=== PATIENT | female | born 1985 | race Hispanic/Latino ===

== ENCOUNTER 2017-10-20 13:06 | Emergency (ER) | payer OTHER ==
[2017-10-20 13:44] LABS: EOSINOPHILS % (AUTO) 1.7 % (0.0-8.0); HEMATOCRIT 39.1 % (36-48); LYMPHOCYTES % (AUTO) 35.3 % (21.0-51.0); MEAN CORPUSCULAR HEMOGLOBIN 30.1 pg (27.0-33.0); MEAN CORPUSCULAR HGB CONC 34.1 g/dL (32.0-36.0); MEAN CORPUSCULAR VOLUME 88.4 fL (79-99); MONOCYTES % (AUTO) 9.3 % (3.0-13.0); NEUTROPHILS % (AUTO) 52.7 % (40.0-77.0); PLATELET COUNT (AUTO) 242 K/uL (130-400); RED BLOOD CELL COUNT(AUTO) 4.43 MIL/uL (4.00-5.50); RED CELL DISTRIBUTION WIDTH 12.5 % (11.0-15.5); WHITE BLOOD COUNT (AUTO) 6.6 K/uL (4.8-10.8)
[2017-10-20 13:53] LABS: CREATININE 0.7 mg/dL (0.5-1.5); POTASSIUM 3.9 mmol/L (3.5-5.1)
[2017-10-20 13:57] LABS: ALBUMIN 4.1 g/dL (3.5-5.0); BILIRUBIN,TOTAL 0.3 mg/dL (0.2-1.0); TOTAL PROTEIN, SERUM 8.2 g/dL (6.0-8.3)
[2017-10-20] MEDS ORDERED: KETOROLAC TROMETHAMINE 30MG/ML ONE (14:35)
[2017-10-20 14:51] LABS: APPEARANCE,URINE Cloudy (CLEAR); BILIRUBIN,URINE Negative (NEGATIVE); COLOR,URINE Yellow (YELLOW); GLUCOSE, URINE (UA) Negative (NEGATIVE); KETONES,URINE Negative (NEGATIVE); LEUKOCYTE ESTERASE ,URINE Small (NEGATIVE); NITRATE,URINE Negative (NEGATIVE); OCCULT BLOOD,URINE Negative (NEGATIVE); PH,URINE 5.5 (5.0-8.0); PROTEIN,URINE Negative (NEGATIVE); UROBILINOGEN,URINE 0.2 mg/dL (0.2-1.0)
[2017-10-20 15:09] LABS: RBC,URINE None Seen /HPF (0-1); SQUAMOUS EPITHELIAL CELL,UR 30-50 /LPF (0-2)
[2017-10-20 15:10] LABS: BACTERIA,URINE Few /HPF (None Seen); WBC,URINE 0-1 /HPF (0-1)
[2017-10-20] MEDS ORDERED: DOCUSATE SODIUM 100 MG CAP PO ONE (15:22)
[2017-10-20] MEDS ORDERED: CEPHALEXIN 500 MG CAPSULE ONE (15:22)
== END 2017-10-20 15:56 | disposition home or self-care (01) ==
LOC: EDH 13:06
DX: N39.0 Urinary tract infection, site not specified (principal); K59.00 Constipation, unspecified; R10.84 Generalized abdominal pain
CPT/HCPCS: 36415; 74176; 80053; 81001; 82150; 83690; 85025; 87088; 96374; 99285; J1885

== ENCOUNTER 2018-03-15 22:07 | Emergency (ER) | payer OTHER ==
[2018-03-15 22:22] LABS: APPEARANCE,URINE Clear (CLEAR); BILIRUBIN,URINE Negative (NEGATIVE); COLOR,URINE Yellow (YELLOW); GLUCOSE, URINE (UA) 500 mg/dL (NEGATIVE); KETONES,URINE 15 mg/dL (NEGATIVE); LEUKOCYTE ESTERASE ,URINE Negative (NEGATIVE); NITRATE,URINE Negative (NEGATIVE); OCCULT BLOOD,URINE Negative (NEGATIVE); PH,URINE 5.5 (5.0-8.0); PROTEIN,URINE Negative (NEGATIVE)
[2018-03-15 22:53] LABS: BACTERIA,URINE Few /HPF (None Seen); RBC,URINE None Seen /HPF (0-1); WBC,URINE None Seen /HPF (0-1)
[2018-03-15] MEDS ORDERED: DEXAMETHASONE SOD PHOSPHATE 10MG/ML 1ML VIAL ONE (23:32)
[2018-03-15] MEDS ORDERED: KETOROLAC TROMETHAMINE 30MG/ML ONE (23:33)
== END 2018-03-16 00:21 | disposition home or self-care (01) ==
LOC: EDH 22:07
DX: J02.0 Streptococcal pharyngitis (principal); M54.5 Low back pain; Z79.899 Other long term (current) drug therapy; Z90.710 Acquired absence of both cervix and uterus
CPT/HCPCS: 72100; 81001; 96372 ×2; 99285; J1100; J1885

== ENCOUNTER 2019-07-27 19:10 | Emergency (ER) | payer MEDICAID, OTHER ==
[2019-07-27] MEDS ORDERED: LIDOCAINE 5% TOPICAL PATCH TP ONE (19:29)
[2019-07-27] MEDS ORDERED: DIAZEPAM 5 MG TABLET ONE (19:30)
[2019-07-27] MEDS ORDERED: KETOROLAC TROMETHAMINE 60 MG/2 ML VIAL ONE (19:30)
== END 2019-07-27 21:31 | disposition home or self-care (01) ==
LOC: EDH 19:10
DX: M54.16 Radiculopathy, lumbar region (principal); Z90.710 Acquired absence of both cervix and uterus; Z98.51 Tubal ligation status
CPT/HCPCS: 96372; 99283; J1885

== ENCOUNTER 2019-12-17 15:41 | Emergency (ER) | payer MEDICAID ==
[2019-12-17 16:32] LABS: BASOPHILS % (AUTO) 0.4 % (0.0-5.0); EOSINOPHILS % (AUTO) 1.5 % (0.0-8.0); HEMATOCRIT 42.7 % (36-48); LYMPHOCYTES % (AUTO) 30.5 % (21.0-51.0); MEAN CORPUSCULAR HEMOGLOBIN 29.6 pg (27.0-33.0); MEAN CORPUSCULAR HGB CONC 33.3 g/dL (32.0-36.0); MONOCYTES % (AUTO) 5.6 % (3.0-13.0); NEUTROPHILS % (AUTO) 61.7 % (40.0-77.0); PLATELET COUNT (AUTO) 318 K/uL (130-400); RED CELL DISTRIBUTION WIDTH 12.4 % (11.0-15.5); WHITE BLOOD COUNT (AUTO) 10.6 K/uL (4.8-10.8)
[2019-12-17 16:39] LABS: CREATININE 0.8 mg/dL (0.5-1.5); POTASSIUM 3.5 mmol/L (3.5-5.1)
[2019-12-17 16:45] LABS: ALBUMIN 4.3 g/dL (3.5-5.0); BILIRUBIN,TOTAL 0.3 mg/dL (0.2-1.0); TOTAL PROTEIN, SERUM 8.8 g/dL (6.0-8.3)
[2019-12-17 16:52] LABS: BILIRUBIN,URINE Negative (NEGATIVE); COLOR,URINE Yellow (YELLOW); GLUCOSE, URINE (UA) Negative (NEGATIVE); KETONES,URINE 15 mg/dL (NEGATIVE); LEUKOCYTE ESTERASE ,URINE Negative (NEGATIVE); NITRATE,URINE Negative (NEGATIVE); OCCULT BLOOD,URINE Negative (NEGATIVE); PH,URINE 7.5 (5.0-8.0); PROTEIN,URINE Trace mg/dL (NEGATIVE)
[2019-12-17 16:55] LABS: AMPHET/METH SCREEN,URINE NEGATIVE (NEGATIVE); BARBITURATE SCREEN, URINE NEGATIVE (NEGATIVE); BENZODIAZEPINES SCREEN,URINE NEGATIVE (NEGATIVE); CANNABINOID SCREEN,URINE NEGATIVE (NEGATIVE); COCAINE SCREEN,URINE NEGATIVE (NEGATIVE); OPIATE SCREEN,URINE NEGATIVE (NEGATIVE); PHENCYCLIDINE SCREEN,URINE NEGATIVE (NEGATIVE)
[2019-12-17 17:00] LABS: APPEARANCE,URINE SLIGHTLY CLOUDY (CLEAR)
[2019-12-17 17:21] LABS: THYROID STIMULATING HORMONE 1.2 uIU/mL (0.36-3.74)
[2019-12-17 17:35] LABS: BACTERIA,URINE Few /HPF (None Seen); RBC,URINE 0-1 /HPF (0-1); WBC,URINE 0-1 /HPF (0-1)
[2019-12-17 17:36] LABS: SQUAMOUS EPITHELIAL CELL,UR Moderate /HPF (0-2)
== END 2019-12-17 17:39 | disposition home or self-care (01) ==
LOC: EDH 15:41
DX: F41.1 Generalized anxiety disorder (principal); Z72.0 Tobacco use; Z90.49 Acquired absence of other specified parts of digestive tract; Z90.710 Acquired absence of both cervix and uterus
CPT/HCPCS: 36415; 80053; 80305; 81001; 82550; 83735; 84443; 84484; 85025; 93005

== ENCOUNTER 2021-03-15 13:21 | Emergency (ER) | payer BC, MEDICAID ==
[2021-03-15] MEDS ORDERED: MAG HYDROX/AL HYDROX/SIMETH ES 30 ML SUSP UDCUP ONE (14:43)
[2021-03-15] MEDS ORDERED: LIDOCAINE HCL 2% VISCOUS 15 ML UDCUP ONE (14:43)
== END 2021-03-15 14:57 | disposition home or self-care (01) ==
LOC: EDH 13:21
DX: B00.2 Herpesviral gingivostomatitis and pharyngotonsillitis (principal); Z90.710 Acquired absence of both cervix and uterus; Z72.0 Tobacco use
CPT/HCPCS: 99281

== ENCOUNTER 2024-03-17 10:53 | Emergency (ER) | payer BC, MEDICAID, OTHER ==
[~2024-03-17] VITALS: Ht 160 cm; Wt 54.4 kg
[2024-03-17] MEDS: KETOROLAC 60 MG VIAL (30MG/ML) IM ONE (13:11)
[2024-03-17] MEDS: ORPHENADRINE CITRATE 30 MG/ML ML IM ONE (13:11)
[2024-03-17 14:05] LABS: BASOPHILS # (AUTO) 0.05 K/uL (0.00-0.20); BASOPHILS % (AUTO) 0.4 % (0.0-5.0); EOSINOPHILS # (AUTO) 0.19 K/uL (0.00-0.70); EOSINOPHILS % (AUTO) 1.7 % (0.0-8.0); HEMATOCRIT 42.2 % (36-48); IMMATURE GRANULOCYTE ABSOLUTE 0.03 K/uL (0-1); LYMPHOCYTES # (AUTO) 3.5 K/uL (1.0-4.8); LYMPHOCYTES % (AUTO) 30.7 % (21.0-51.0); MEAN CORPUSCULAR HEMOGLOBIN 30.2 pg (27.0-33.0); MEAN CORPUSCULAR HGB CONC 34.1 g/dL (32.0-36.0); MEAN CORPUSCULAR VOLUME 88.5 fL (79-99); MONOCYTES # (AUTO) 0.7 K/uL (0.1-1.0); MONOCYTES % (AUTO) 6.4 % (3.0-13.0); NEUTROPHILS # (AUTO) 6.9 K/uL (1.8-7.7); NEUTROPHILS % (AUTO) 60.5 % (40.0-77.0); PLATELET COUNT (AUTO) 363 K/uL (130-400); RED BLOOD CELL COUNT(AUTO) 4.77 MIL/uL (4.00-5.50); WHITE BLOOD COUNT (AUTO) 11.3 K/uL (4.8-10.8)
[2024-03-17 14:14] LABS: POTASSIUM 3.8 mmol/L (3.5-5.1)
[2024-03-17 14:15] LABS: CREATININE 0.8 mg/dL (0.5-1.0)
[2024-03-17] MEDS: TRAMADOL HCL 50 MG TABLET PO ONE (15:08)
[2024-03-17] MEDS: TRAMADOL HCL 50 MG TABLET ONE (15:08)
[2024-03-17] MEDS ORDERED: NAPR375T6 PO (16:28)
[2024-03-17 16:39] VITALS: BP 123/78; PULSE 78; RESP 18; O2SAT 98
== END 2024-03-17 16:42 | disposition home or self-care (01) ==
LOC: EDH 10:53
DX: S46.812A Strain of other muscles, fascia and tendons at shoulder and upper arm level, left arm, initial encounter (principal); Z88.1 Allergy status to other antibiotic agents; Z90.710 Acquired absence of both cervix and uterus; X58.XXXA Exposure to other specified factors, initial encounter; Y93.89 Activity, other specified; Y92.89 Other specified places as the place of occurrence of the external cause; Y99.8 Other external cause status
CPT/HCPCS: 99285; 71250; 71046; 84484; 80048; 85025; 85378; 81025; 36415; 96372 ×2; 93005; J1885; J2360

== ENCOUNTER 2024-08-05 11:02 | Emergency (ER) | payer SELFPAY ==
[~2024-08-05] VITALS: Ht 162.6 cm; Wt 52.2 kg
[~2024-08-05 11:02] MED LIST: NAPR-1505 PO
[2024-08-05 11:54] LABS: BASOPHILS # (AUTO) 0.04 K/uL (0.00-0.20); BASOPHILS % (AUTO) 0.6 % (0.0-5.0); EOSINOPHILS # (AUTO) 0.32 K/uL (0.00-0.70); EOSINOPHILS % (AUTO) 4.8 % (0.0-8.0); HEMATOCRIT 41.6 % (36-48); IMMATURE GRANULOCYTE ABSOLUTE 0.02 K/uL (0-1); LYMPHOCYTES # (AUTO) 2.3 K/uL (1.0-4.8); LYMPHOCYTES % (AUTO) 34.5 % (21.0-51.0); MEAN CORPUSCULAR HEMOGLOBIN 29.9 pg (27.0-33.0); MEAN CORPUSCULAR HGB CONC 33.7 g/dL (32.0-36.0); MEAN CORPUSCULAR VOLUME 88.7 fL (79-99); MONOCYTES # (AUTO) 0.4 K/uL (0.1-1.0); MONOCYTES % (AUTO) 6.6 % (3.0-13.0); NEUTROPHILS # (AUTO) 3.6 K/uL (1.8-7.7); NEUTROPHILS % (AUTO) 53.2 % (40.0-77.0); PLATELET COUNT (AUTO) 331 K/uL (130-400); RED BLOOD CELL COUNT(AUTO) 4.69 MIL/uL (4.00-5.50); RED CELL DISTRIBUTION WIDTH 11.9 % (11.0-15.5); WHITE BLOOD COUNT (AUTO) 6.7 K/uL (4.8-10.8)
[2024-08-05 11:59] LABS: CREATININE 0.9 mg/dL (0.5-1.0); MAGNESIUM 2.2 mg/dL (1.80-2.40); POTASSIUM 4.7 mmol/L (3.5-5.1)
[2024-08-05 13:00] LABS: COVID19 (SARS ANTIGEN RAPID) PRESUMPTIVE NEGATIVE (NEGATIVE)
[2024-08-05 13:10] LABS: APPEARANCE,URINE CLEAR (CLEAR); BILIRUBIN,URINE NEGATIVE (NEGATIVE); COLOR,URINE DARK-YELLOW (YELLOW); GLUCOSE, URINE (UA) NEGATIVE (NEGATIVE); KETONES,URINE NEGATIVE (NEGATIVE); LEUKOCYTE ESTERASE ,URINE NEGATIVE Leu/uL (NEGATIVE); NITRATE,URINE 1+ (NEGATIVE); OCCULT BLOOD,URINE NEGATIVE (NEGATIVE); PROTEIN,URINE NEGATIVE (NEGATIVE); UROBILINOGEN,URINE 0.2 mg/dL (0.2-1.0)
[2024-08-05 13:12] VITALS: BP 116/81; PULSE 90; RESP 18; TEMP 98.8; O2SAT 98
[2024-08-05 13:12] LABS: INFLUENZA TYPE A Negative For Type A (NEGATIVE); INFLUENZA TYPE B Negative For Type B (NEGATIVE)
[2024-08-05 13:23] LABS: ADD UA MICROSCOPIC YES
[2024-08-05 13:29] LABS: SQUAMOUS EPITHELIAL CELL,UR RARE /HPF (0-2)
[2024-08-05] MEDS ORDERED: IBUP-2070 PO (13:39)
[2024-08-05] MEDS ORDERED: CLIN-141 PO (13:40)
== END 2024-08-05 13:47 | disposition home or self-care (01) ==
LOC: EDH 11:02
DX: R07.89 Other chest pain (principal); Z20.822 Contact with and (suspected) exposure to COVID-19; F41.9 Anxiety disorder, unspecified; L03.011 Cellulitis of right finger; Z88.1 Allergy status to other antibiotic agents; Z90.710 Acquired absence of both cervix and uterus
CPT/HCPCS: 36415; 71045; 80048; 81001; 83605; 83735; 84484; 85025; 87040; 87086; 87426; 87804; 93005

== ENCOUNTER 2025-01-16 12:36 | Emergency (ER) | payer SELFPAY ==
[~2025-01-16] VITALS: Ht 160 cm; Wt 54.4 kg
[~2025-01-16 12:36] MED LIST changes: +CLIN-141 PO; +IBUP-2070 PO
--- NOTE | 2025-01-16 13:11 | EKG ---
[facility] Test Date: 2025-01-16 Test Time: 13:09:41 Pat Name: CARMINA WU Department: [facility] Room: Gender: Female [employer]inter: [id number] : 1985 Requested By: PHILLIP GARRETT Order Number: [id number] Reading MD: Measurements Intervals [place] Rate: 114 P: 75 SD: 126 QRS: -69 QRSD: 83 T: 65 QT: 347 QTc: 479 Interpretive Statements Sinus tachycardia Left atrial enlargement Left anterior fascicular block Please click the below link to view image of tracing.
[2025-01-16 13:41] LABS: BASOPHILS # (AUTO) 0.05 K/uL (0.00-0.20); BASOPHILS % (AUTO) 0.4 % (0.0-5.0); EOSINOPHILS # (AUTO) 0.09 K/uL (0.00-0.70); EOSINOPHILS % (AUTO) 0.7 % (0.0-8.0); HEMATOCRIT 45.6 % (36-48); IMMATURE GRANULOCYTE ABSOLUTE 0.04 K/uL (0-1); LYMPHOCYTES # (AUTO) 3.2 K/uL (1.0-4.8); LYMPHOCYTES % (AUTO) 26.1 % (21.0-51.0); MEAN CORPUSCULAR HEMOGLOBIN 30.9 pg (27.0-33.0); MEAN CORPUSCULAR HGB CONC 34.9 g/dL (32.0-36.0); MEAN CORPUSCULAR VOLUME 88.7 fL (79-99); MONOCYTES # (AUTO) 0.7 K/uL (0.1-1.0); MONOCYTES % (AUTO) 6.1 % (3.0-13.0); NEUTROPHILS % (AUTO) 66.4 % (40.0-77.0); PLATELET COUNT (AUTO) 372 K/uL (130-400); RED BLOOD CELL COUNT(AUTO) 5.14 MIL/uL (4.00-5.50); WHITE BLOOD COUNT (AUTO) 12.1 K/uL (4.8-10.8)
[2025-01-16 13:48] LABS: CREATININE 0.9 mg/dL (0.5-1.0); POTASSIUM 3.2 mmol/L (3.5-5.1)
[2025-01-16 14:09] LABS: B-TYPE NATRIURETIC PEPTIDE < 5 pg/mL (0-100)
[2025-01-16] MEDS: 0.9%NACL 1000ML 1,000 ML IV ONE (14:12)
[2025-01-16] MEDS ORDERED: COMPOUND PO MISCELLANEOUS 1 EACH MISC MISC PRN (15:00)
[2025-01-16] MEDS ORDERED: PHARMACY COMMUNICATION MISC SCH (15:00)
--- NOTE | 2025-01-16 15:31 | ERN ---
General Chief Complaint: Syncope Stated Complaint: LEFT SIDE NUMBING Time Seen by MD: 12:38 History of Present Illness Allergies: Coded Allergies: No Known Allergies (Verified Allergy, Unknown, 12/05/15) vancomycin (Unverified Allergy, Unknown, ITCHING, 12/05/15) Home Meds Active Scripts Prednisone (Prednisone) 20 Mg Tablet, 1 TAB PO BID for 7 Days, #14 TAB 0 Refills Prov:TAMIPHILLIP Ton VALDERRAMA 01/16/25 Lidocaine HCl (Magic Mouthwash [Maalox/Lidocaine/Nystatin]) 200 Mg-200 Mg-20 Mg/5 Ml Soln, 15 ML PO TID for 7 Days, #355 ML 0 Refills Prov:TAMIPHILLIP Ton VALDERRAMA 01/16/25 Clindamycin HCl (Clindamycin HCl) 300 Mg Capsule, 1 CAP PO QID for 10 Days, #40 CAP 0 Refills Prov:MARILYNN SAWYER NP 08/05/24 Ibuprofen (Ibuprofen) 600 Mg Tablet, 600 MG PO Q6H PRN for PAIN, #30 TAB Prov:MARILYNN SAWYER NP 08/05/24 Naproxen (Naproxen) 375 Mg Tablet.dr, 375 MG PO BID for 10 Days, #20 TAB Prov:KENDRICK ROJAS MD 03/17/24 Past Medical History Past Medical History: Anxiety Medical History Other: AUTOIMMUNE DISORDER Past Surgical History: Hysterectomy Female( History) History: Not Applicable ROS Dictation CONSTITUTIONAL: No chills, no fever, no weakness, no diaphoresis, no malaise. HEAD/FACE: No signs of trauma. EENT: No eye pain, no blurred vision, no tearing, no double vision, no ear pain, no ear discharge, no nose pain, no nasal congestion, no throat pain, no throat swelling, no mouth pain. RESPIRATORY: No cough, no orthopnea, no SOB, no stridor, no wheezing. CARDIOVASCULAR: Near-syncope GASTROINTESTINAL/ABDOMINAL: No abdominal pain, no constipation, no diarrhea, no nausea, no vomiting. GENITOURINARY: No abnormal discharge, no dysuria, no frequent urination, no hematuria. No complaints of pain in the genitals. MUSCULOSKELETAL: No back pain, no gout, no joint pain, no joint swelling, no muscle pain, no muscle stiffness, no neck pain. INTEGUMENTARY: No change in color, no change in hair/nails, no dryness, no lesion, no lumps, no rash. NEUROLOGICAL/PSYCH: No anxiety, not depressed, no emotional problem, no headache, no numbness, no pre-existing deficit, no history of seizures, no tremors, no weakness. HEMATOLOGIC/LYMPHATIC: Not anemic, no history of blood clots, no apparent bleeding, no bruising, glands not swollen. All Systems Negative, Except as Noted. Physical Exam Physical Exam Dictation VITAL SIGNS: Reviewed. GENERAL APPEARANCE: Alert, oriented x3, no acute distress. HEAD AND FACE: Non-traumatic. EYES: PERRL, pink conjunctivas, eyelid no trauma, anterior chamber clear. EARS: Pinnas intact and no signs of trauma or erythema. Ear canals clear and no discharge. TMs no erythema. NOSE: No discharge, no bleeding. OROPHARYNX: Mouth normal, teeth no caries, tongue pink. Pharynx clear, no erythema. Tonsils no exudates, no abscesses noted. Mucous membrane moist. NECK: Supple, non-tender, no thyromegaly, no masses, no JVD, no bruits. BREAST: Deferred. CHEST: No tenderness, no crepitus, no paradoxical movement, no retractions. LUNGS: Clear, well-ventilated, symmetric, no rales, no wheezing, no rhonchi, no stridor, good breath sounds bilaterally. HEART: Regular rate, regular rhythm, no murmur, no gallops. VASCULAR: No peripheral edema. ABDOMEN: Soft, positive bowel sounds, nondistended, no guarding, nontender, no rebound, no masses no hepatomegaly, no splenomegaly, no Spencer's sign, no hernias. RECTAL: Deferred. GENITAL: Deferred. NEUROLOGICAL: Normal speech, gross motor function intact, gross sensory function intact. MUSCULOSKELETAL: Neck nontender, full range of motion, back nontender, full range of motion. EXTREMITIES: Nontender, full range of motion. SKIN: Color pink, dry, no turgor, no rash, no lacerations, no abrasions, no contusions. LYMPHATICS: Deferred. Results Laboratory and Microbiology Lab and Micro Result Laboratory Tests Test 01/16/25 13:34 01/16/25 14:20 White Blood Count 12.1 K/uL (4.8-10.8) H Red Blood Count 5.14 MIL/uL (4.00-5.50) Hemoglobin 15.9 g/dL (12.0-16.0) Hematocrit 45.6 % (36-48) Mean Corpuscular Volume 88.7 fL (79-99) Mean Corpuscular Hemoglobin 30.9 pg (27.0-33.0) Mean Corpuscular Hemoglobin Concent 34.9 g/dL (32.0-36.0) Red Cell Distribution Width 12.0 % (11.0-15.5) Platelet Count 372 K/uL (130-400) Mean Platelet Volume 9.2 fL (7.5-10.5) Immature Granulocyte % (Auto) 0.3 % (0-1) Neutrophils (%) (Auto) 66.4 % (40.0-77.0) Lymphocytes (%) (Auto) 26.1 % (21.0-51.0) Monocytes (%) (Auto) 6.1 % (3.0-13.0) Eosinophils (%) (Auto) 0.7 % (0.0-8.0) Basophils (%) (Auto) 0.4 % (0.0-5.0) Neutrophils # (Auto) 8.0 K/uL (1.8-7.7) H Lymphocytes # (Auto) 3.2 K/uL (1.0-4.8) Monocytes # (Auto) 0.7 K/uL (0.1-1.0) Eosinophils # (Auto) 0.09 K/uL (0.00-0.70) Basophils # (Auto) 0.05 K/uL (0.00-0.20) Absolute Immature Granulocyte (auto 0.04 K/uL (0-1) Nucleated Red Blood Cells 0.0 % (0.0-0.19) D-Dimer Quantitative (PE/DVT) 201 ng/mL (0-500) Sodium Level 130 mmol/L (136-145) L Potassium Level 3.2 mmol/L (3.5-5.1) L Chloride Level 91 mmol/L (101-111) L Carbon Dioxide Level 28 mmol/L (21-32) Blood Urea Nitrogen 30 mg/dL (7-18) H Creatinine 0.9 mg/dL (0.5-1.0) Glomerular Filtration Rate Calc 82 mL/min (>90) Random Glucose 119 mg/dL (70-105) H Total Calcium 10.2 mg/dL (8.5-10.1) H Total Creatine Kinase 54 U/L (21-232) Troponin I High Sensitivity 5 ng/L (4-50) B-Type Natriuretic Peptide < 5 pg/mL (0-100) Urine HCG, Qualitative NEGATIVE (NEGATIVE) ED Course Orders Procedure Category Date Status Time Cbc With Differential LAB 01/16/25 Complete 12:56 B-Type Natriuretic LAB 01/16/25 Complete Peptide 12:56 Chest 1vw RAD 01/16/25 Resulted 12:56 12 Lead Ekg Tracing- EKG 01/16/25 Complete Technical 12:56 ,Urine Test LAB 01/16/25 Complete 12:56 Creatine Kinase, Total LAB 01/16/25 Complete 12:56 Troponin I High LAB 01/16/25 Complete Sensitivity 12:56 Basic Metabolic Panel LAB 01/16/25 Complete 12:56 0.9%Nacl 1000ml (Ns PHA 01/16/25 Complete 1000ml) 14:00 D-Dimer LAB 01/16/25 Complete 14:09 Pharmacy PHA 01/16/25 Complete Communication 15:00 Mag/Alum/Simeth 30ml PHA 01/16/25 Complete (Maalox Plus 30ml) 15:00 Compound Po Misc PHA 01/16/25 Complete (Compound Po Misc) 15:00 Mag/Alum/Simeth 30ml PHA 01/16/25 Complete (Maalox Plus 30ml) 15:30 Diphenhydramine Hcl PHA 01/16/25 Complete (Benadryl Elixir) 15:30 Lidocaine Hcl 2% PHA 01/16/25 Complete Viscous (Lidocaine Hcl 15:30 Current Medications Medications (Trade) Dose Ordered Sig/Julieth Route PRN Reason Start Time Stop Time Status Last Admin Dose Admin Al Hydroxide/Mg Hydroxide (MAALox PLUS 30ML) 30 ml ONCE ONCE PO 01/16/25 15:30 01/16/25 15:31 DC 01/16/25 15:33 Al Hydroxide/Mg Hydroxide/ Lidocaine HCl/ Diphenhydramine HCl TAKE (5-10)ML SWISH ... ONCE ONCE PO 01/16/25 15:00 01/16/25 15:01 DC Diphenhydramine HCl (BENAdryl ELIXIR) 75 mg ONCE ONCE PO 01/16/25 15:30 3/31/25 15:31 DC 01/16/25 15:33 Lidocaine HCl (Lidocaine HCl 2% Viscous) 30 ml ONCE ONCE PO 01/16/25 15:30 01/16/25 15:31 DC 01/16/25 15:33 Pharmacy Profile Note (Pharmacy Communication) 1 each ONCE MISC 01/16/25 15:00 01/16/25 14:47 DC Sodium Chloride 1,000 ml @ 0 mls/hr ONCE ONCE IV 01/16/25 14:00 01/16/25 14:01 DC 01/16/25 14:12 Vital Signs Date Time Temp Pulse Resp B/P (MAP) Pulse Ox O2 Delivery O2 Flow Rate FiO2 01/16/25 15:51 97.5 88 20 110/78 98 Room Air* 0 21 01/16/25 12:42 97.3 118 22 111/83 98 Room Air 0 DX & DISP Disposition: Discharge Departure Impression: Primary Impression: Mouth lesion Additional Impression: Dehydration Condition: Stable Scripts Prednisone (Prednisone) 20 Mg Tablet 1 TAB PO BID for 7 Days, #14 TAB 0 Refills Prov: PHILLIP GARRETT DO 01/16/25 Lidocaine HCl (Magic Mouthwash [Maalox/Lidocaine/Nystatin]) 200 Mg-200 Mg-20 Mg/5 Ml Soln 15 ML PO TID for 7 Days, #355 ML 0 Refills Prov: PHILLIP GARRETT DO 01/16/25 Additional Instructions: There are no dangerous findings on your workup here today. Your symptoms are consistent with dehydration, oral lesions, and anxiety about health. You EKGs normal. Your chest x-ray is normal. Your lab work (CBC, BMP, CK, troponin) is consistent with dehydration but is otherwise unremarkable. You received IV fluids here in the ER. I have prescribed magic mouthwash. You can use this up to 3 times a day to help reduce the discomfort of the the oral lesions. I have also prescribed steroids, which reduce inflammation. This may help with your oral lesions. Please follow up with your primary doctor as needed. Return to the emergency department as needed. Referrals: SELF,REFERRAL (PCP) PHILLIP GARRETT DO Jan 16, 2025 15:31
[2025-01-16] MEDS: MAG/ALUM/SIMETH 30 ML UDCUP PO ONE (15:33)
[2025-01-16] MEDS: LIDOCAINE HCL 2% VISCOUS 15 ML UDCUP PO ONE (15:33)
[2025-01-16] MEDS: MAG/AL/SIMETH 30 ML+LIDO2% VISC+DIPHEN 75MG 30ML PO ONE (15:33)
[2025-01-16] MEDS: DiphenhydrAMINE HCL 25 MG/10 ML ELIXIR UDCUP PO ONE (15:33)
[2025-01-16] MEDS ORDERED: PRED20TA3 PO (15:40)
[2025-01-16] MEDS ORDERED: MAGIC PO (15:40)
[2025-01-16 15:51] VITALS: BP 110/78; PULSE 88; RESP 20; TEMP 97.5; O2SAT 98
--- NOTE | 2025-01-16 16:56 | HMCIMG ---
CHEST 1VW HISTORY: Dizziness COMPARISON: 08/05/2024 FINDINGS: A frontal projection of the chest was obtained. No acute pulmonary infiltrates is seen. The heart is normal in size. Prominent interstitial markings are seen. Degenerative changes are seen. IMPRESSION: 1. No acute pulmonary infiltrate is seen.
== END 2025-01-16 15:59 | disposition home or self-care (01) ==
LOC: EDH 12:36
DX: K13.70 Unspecified lesions of oral mucosa (principal); E86.0 Dehydration; Z79.899 Other long term (current) drug therapy; Z88.1 Allergy status to other antibiotic agents; Z90.710 Acquired absence of both cervix and uterus
CPT/HCPCS: 99285; 96360; 71045; 82550; 84484; 80048; 83880; 85025; 85378; 81025; 36415; 93005; J7030

== ENCOUNTER 2025-03-16 10:56 | Emergency (ER) | payer SELFPAY ==
[~2025-03-16] VITALS: Ht 160 cm; Wt 56.7 kg
[~2025-03-16 10:56] MED LIST changes: +MAGIC PO; +PRED20TA3 PO
[2025-03-16 11:13] VITALS: BP 120/75; PULSE 85; RESP 18; TEMP 98.1; O2SAT 100
[2025-03-16] MEDS: CYCLOBENZAPRINE HCL 10 MG TABLET PO ONE (11:25)
[2025-03-16] MEDS: LACTATED RINGERS 1000ML IV STA ×2 (11:25→13:38)
[2025-03-16] MEDS: ketOROlac 30MG VIAL (30MG/ML) IVP ONE (11:25)
--- NOTE | 2025-03-16 11:27 | ERN ---
General Chief Complaint: Shoulder Injury/Pain Stated Complaint: LEFT SHOULDER PAIN Time Seen by MD: 11:05 Source: patient History of Present Illness Initial Comments Patient is a 39-year-old female who has been going to the gym more recently and now is concerned about left trapezius pain left shoulder blade pain left neck pain. No fevers no chills no swelling no trauma. No other systemic symptoms. Timing/Duration: 1 week Allergies: Coded Allergies: No Known Allergies (Verified Allergy, Unknown, 12/05/15) vancomycin (Unverified Allergy, Unknown, ITCHING, 12/05/15) Home Meds Active Scripts Prednisone (Prednisone) 20 Mg Tablet, 1 TAB PO BID for 7 Days, #14 TAB 0 Refills Prov:PHILLIP GARRETT DO 01/16/25 Lidocaine HCl (Magic Mouthwash [Maalox/Lidocaine/Nystatin]) 200 Mg-200 Mg-20 Mg/5 Ml Soln, 15 ML PO TID for 7 Days, #355 ML 0 Refills Prov:PHILLIP GARRETT DO 01/16/25 Clindamycin HCl (Clindamycin HCl) 300 Mg Capsule, 1 CAP PO QID for 10 Days, #40 CAP 0 Refills Prov:MARILYNN SAWYER NP 08/05/24 Ibuprofen (Ibuprofen) 600 Mg Tablet, 600 MG PO Q6H PRN for PAIN, #30 TAB Prov:MARILYNN SAWYER [employer] MANAGEMENT TECHNICIAN 08/05/24 Naproxen (Naproxen) 375 Mg Tablet.dr, 375 MG PO BID for 10 Days, #20 TAB Prov:KENDRICK ROJAS MD 03/17/24 Past Medical History Past Medical History: No Pertinent History Medical History Other: AUTOIMMUNE DISORDER Past Surgical History: None Female( History) History: Not Applicable Constitutional: (-) chills, (-) diaphoresis, (-) fever, (-) malaise, (-) [place], (-) other documentation EENTM: (-) eye pain, (-) blurred vision, (-) tearing, (-) double vision, (-) ear pain, (-) ear discharge, (-) nose pain, (-) nose congestion, (-) throat pain, (-) Throat swelling, (-) mouth pain, (-) tooth pain, (-) mouth swelling, (-) other documentation Respiratory: (-) cough, (-) orthopnea, (-) short of breath, (-) stridor, (-) wheezing, (-) other documentation Cardiovascular: (-) chest pain, (-) edema, (-) palpitations, (-) syncope, (-) dyspnea on exertion, (-) other documentation Gastrointestinal/Abdominal: (-) nausea, (-) vomiting, (-) diarrhea, (-) abdominal pain, (-) abdominal distention, (-) constipation, (-) rectal bleeding, (-) dark stool/melena, (-) other documentation Musculoskeletal: (+) Neck pain, (+) back pain, (+) muscle pain Physical Exam Back Comment Patient does have supraspinatus and infraspinatus muscle tenderness as well as paraspinal neck muscle tenderness. Her left trapezius is not as tender as the other parts of her back and shoulder. No rash no swelling no bumps no bruising. MDM I will start this workup with the standard fluid muscle relaxant Toradol regime. If these do not help then I will have to examine other possibilities for the patient's pain. Patient's pain was still quite severe after the Toradol Flexeril and 1 L of LR. I gave her a 2 L of LR plus an injection of Norflex into her left shoulder. And then I gave her 2 mg of IV Dilaudid. The patient now feels well enough to go home. The pain is gone. She still feels the tenseness in her muscle but the pain is gone. I recommended to the patient to get a good strong back rub well the pain medications and muscle relaxants her on board. To drink plenty of fluids. Now give her a prescription for nor flex. ED Course Orders Procedure Category Date Status Time Ketorolac PHA 03/16/25 Complete Tromethamine 30mg/Ml 11:30 Cyclobenzaprine Hcl PHA 03/16/25 Complete (Cyclobenzaprine Hcl 11:30 Lactated Ringers PHA 03/16/25 Complete 1000ml (Lactated 11:06 Orphenadrine Citrate PHA 03/16/25 Complete (Norflex) 13:00 Lactated Ringers PHA 03/16/25 In Process 1000ml (Lactated 13:21 Hydromorphone 1 Mg PHA 03/16/25 Complete Inj (Dilaudid 1mg Inj 13:30 Current Medications Medications (Trade) Dose Ordered Sig/Julieth Route PRN Reason Start Time Stop Time Status Last Admin Dose Admin Cyclobenzaprine HCl (Cyclobenzaprine HCl) 10 mg ONCE ONCE PO 03/16/25 11:30 03/16/25 11:31 DC 03/16/25 11:25 Hydromorphone HCl (DiLAUDid 1MG INJ) 1 mg ONCE ONCE IVP 03/16/25 13:30 03/16/25 13:31 DC 03/16/25 13:38 Ketorolac Tromethamine (toRADol) 30 mg ONCE ONCE IVP 03/16/25 11:30 03/16/25 11:31 DC 03/16/25 11:25 Lactated Ringer's (Lactated Ringers 1000ml) 1,000 ml BOLUS STAT IV 03/16/25 11:06 03/16/25 11:14 DC 03/16/25 11:25 Lactated Ringer's (Lactated Ringers 1000ml) 1,000 ml BOLUS STAT IV 03/16/25 13:21 03/16/25 13:22 DC 03/16/25 13:38 Orphenadrine Citrate (Norflex) 60 mg ONCE ONCE IM 03/16/25 13:00 03/16/25 13:01 DC 03/16/25 13:00 Vital Signs Date Time Temp Pulse Resp B/P (MAP) Pulse Ox O2 Delivery O2 Flow Rate FiO2 03/16/25 11:13 98.1 85 18 120/75 100 Room Air* 0 21 03/16/25 10:59 98.1 96 18 115/71 100 Room Air 0 DX & DISP Disposition: Discharge Departure Impression: Primary Impression: Dehydration Additional Impression: Muscle pain, cervical Condition: Stable Scripts Orphenadrine Citrate (Norflex) 100 Mg Srtab 1 TAB PO [id number] PRN for pain for 30 Days, #60 TAB 0 Refills Prov: SHIRLEY KWAN MD 03/16/25 Additional Instructions: Please drink plenty of fluids to prevent dehydration. Back massages warm compresses may help. Please return if your symptoms return. Referrals: SELF,REFERRAL (PCP) SHIRLEY KWAN MD March 16, 2025 11:27
[2025-03-16] MEDS: ORPHENADRINE 60MG/2ML IM ONE (13:00)
[2025-03-16] MEDS: hydroMORPHone 1 MG INJ IVP ONE (13:38)
[2025-03-16] MEDS ORDERED: ORPH100 PO (14:39)
== END 2025-03-16 15:34 | disposition home or self-care (01) ==
LOC: EDH 10:56
DX: E86.0 Dehydration (principal); M25.512 Pain in left shoulder; M54.2 Cervicalgia; Z79.52 Long term (current) use of systemic steroids; Z88.1 Allergy status to other antibiotic agents
CPT/HCPCS: 99284; 96374; 96375; 96372; J1885; J7120 ×2; J1171; J2360